=== PATIENT | female | born 1980 | race American Indian/Alaskan Native ===

== ENCOUNTER 2018-11-02 13:29 | Inpatient (IN) | payer OTHER ==
[2018-11-02 14:48] LABS: Hematocrit 32.2 % (30.3-42.9); Hemoglobin 10.1 gm/dl (10.1-14.3); Mean Corpuscular HGB Conc 31 % (30-34); Platelet Count 257 K/mm3 (140-440); Red Blood Count 4.67 M/mm3 (3.65-5.03)
[2018-11-02 14:49] LABS: Mean Corpuscular Volume 69 fl (79-97); Red Cell Distribution Width 23.1 % (13.2-15.2)
[2018-11-02 14:53] LABS: Bilirubin,Urine NEG (Negative); Blood,Urine NEG (Negative); Color,Urine Yellow (Yellow); Mucus,Urine 1+ /HPF; Protein,Urine <15 mg/dL mg/dL (Negative); Urobilinogen,Urine < 2.0 mg/dL (<2.0)
[2018-11-02] MEDS ORDERED: TYLENOL PO ONE (14:53)
[2018-11-02 15:11] LABS: Alanine Aminotransferase 6 units/L (7-56)
[2018-11-02 15:46] LABS: Uric Acid 4.5 mg/dL (3.5-7.6)
[2018-11-02] MEDS ORDERED: LACTATED RINGERS 1,000 ML ONE ×2 (16:13→17:21)
[2018-11-02] MEDS ORDERED: REGLAN IV ONE (16:28)
[2018-11-02] MEDS ORDERED: PEPCID IV ONE (16:28)
[2018-11-02] MEDS ORDERED: BICITRA PO ONE (16:28)
--- NOTE | 2018-11-02 16:36 | History and Physical Report ---
History of Present Illness Date of examination: 11/02/18 Chief complaint: 11/02/18 History of present illness: This is a 38 yo at 40 weeks sent over from clinic with elevated BP 140/80s. patient was sent for PIH w/u and US and BPP shows 04/16. She is a patient of [facility]. During her course of care she is AMA seen by MFM. HX of PPH, hx of pyelectasis, GBS+, Anxiety. Past History Past Medical History: no pertinent history, hematologic disorders, other (anemia hgb 7 on OB intake currently 10) Past Surgical History: no surgical history Family/Genetic History: none Social history: . denies: smoking, alcohol abuse, prescription drug abuse - Obstetrical History Expected Date of Delivery: 11/01/18 Actual Gestation: 40 Week(s) 1 Day(s) : 6 Para: 4 Hx # Term Pregnancies: 4 Number of Pregnancies: 1 Spontaneous Abortions: 0 Induced : 0 Number of Living Children: 4 Medications and Allergies Allergies Allergy/AdvReac Type Severity Reaction Status Date / Time No Known Allergies Allergy Verified 11/02/18 14:02 Review of Systems All systems: negative - Vital Signs Vital signs: Vital Signs Pulse BP 113 H 129/71 11/02/18 14:00 11/02/18 14:00 Temp Pulse Resp BP Pulse Ox 98 F 100 H 20 98/55 98 11/02/18 14:06 11/02/18 14:46 11/02/18 14:06 11/02/18 14:46 11/02/18 14:11 - Physical Exam Breasts: Positive: normal Cardiovascular: Regular rate, Normal S1 Lungs: Positive: Clear to auscultation, Normal air movement Abdomen: Positive: normal appearance, soft, normal bowel sounds. Negative: distention, tenderness, guarding Genitourinary (Female): Positive: normal external genitalia, normal perenium Uterus: Positive: normal size, normal contour Anus/Rectum: Positive: normal perianal skin Extremities: Positive: normal Deep Tendon Reflex Grade: Normal +2 - Obstetrical FHR: category 1 Cervical Dilatation: 1 Results Result Diagrams: 11/02/18 14:00 11/02/18 14:00 Abnormal lab results 11/02/18 11/02/18 Range/Units 14:00 14:00 MCV 69 L (79-97) fl MCH 22 L (28-32) pg RDW 23.1 H (13.2-15.2) % Creatinine 0.5 L (0.7-1.2) mg/dL ALT 6 L (7-56) units/L Lactate Dehydrogenase 231 H (91-180) units/L All other labs normal. Ultrasound: report reviewed Assessment and Plan A/P HD#1 IUP 40 weeks GBS + BPP 04/16 Discussed recommendation for NR BPP Discussed c/sec- we discussed bleeding, infection, damage to pelvic and non pelvic organs, risk of blood clots, risk of pain, risk to damage to baby, risk of hysterectomy, risk of Patient agrees with assesment and will proceed with primary csec
--- NOTE | 2018-11-02 16:37 | Anesthesia Consultation ---
Anesthesia Consult and Med Hx Date of service: 11/02/18 - Airway Anesthetic Teeth Evaluation: Good ROM Head & Neck: Adequate Mental/Hyoid Distance: Adequate Mallampati Class: Class II Intubation Access Assessment: Probably Good - Pulmonary Exam CTA: Yes - Cardiac Exam Cardiac Exam: RRR - Pre-Operative Health Status ASA Pre-Surgery Classification: ASA2, Emergency Proposed Anesthetic Plan: General, Spinal - Pulmonary Hx Asthma: No - Cardiovascular System Hx Hypertension: No - Central Nervous System Hx Seizures: No Hx Psychiatric Problems: No - Endocrine Hx Renal Disease: No Hx Hypothyroidism: No Hx Hyperthyroidism: No - Hematic Hx Anemia: Yes Hx Sickle Cell Disease: No - Other Systems Hx Alcohol Use: No - Additional Comments Anesthesia Medical History Comments: Hx Post- hemorrhage
--- NOTE | 2018-11-02 16:37 | Anesthesia Day of Surgery ---
Anesthesia Day of Surgery - Day of Surgery Patient Examined: Yes Patient H&P Reviewed: Yes Patient is NPO: No
[2018-11-02] MEDS ORDERED: ZOFRAN ONE (16:42)
[2018-11-02] MEDS ORDERED: DEXMEDETOMIDINE IV ONE (16:42)
[2018-11-02] MEDS ORDERED: ANCEF/STERILE WATER 2 GM/20 ML 2 GM/20 ML SYRINGE IV NR (17:00)
[2018-11-02] MEDS ORDERED: LACTATED RINGERS 1,000 ML IV SCH (17:00)
[2018-11-02] MEDS ORDERED: PITOCin/NS 20 UNIT/1000ML DRIP 20 UNITS/1,000 ML BAG IV SCH (17:00)
[2018-11-02] MEDS ORDERED: WATER FOR IRRIG STERILE IR ONE (17:20)
[2018-11-02] MEDS ORDERED: NACL 0.9% IR ONE (17:20)
--- NOTE | 2018-11-02 17:44 | Ultrasound Report ---
ULTRASOUND BIOPHYSICAL PROFILE INDICATION / CLINICAL INFORMATION: Hypertension. Pelvic pain. well-being. COMPARISON: None available. FINDINGS: BREATHING MOVEMENT = 0 GROSS BODY MOVEMENT = 0 TONE = 0 QUALITATIVE AMNIOTIC FLUID VOLUME = 2 TOTAL BIOPHYSICAL SCORE = 2/8 AMNIOTIC FLUID INDEX (cm) = 11.1 PRESENTATION: Cephalic. HEART RATE (beats per minute): 143 IMPRESSION: 1. biophysical profile = 2/8 age of 40 weeks and 1 day. Signer Name: Liban Gan MD Signed: 11/02/2018 5:40 PM Workstation Name: [id number]
--- NOTE | 2018-11-02 18:44 | Procedure Note ---
OB Delivery Note - Delivery Date of Delivery: 11/02/18 Surgeon: LYNNETTE FROST Estimated blood loss: 1000cc - Section Preop diagnosis: nonreassuring FHR tracing, other (BPP 2/8) Postop diagnosis: same section procedure: section, primary low transverse, bilateral tubal ligation Disposition: PACU Complications: none Narrative: see op note - Infant A at 1 minute: 8 at 5 minutes: 8 Infant Gender: Female (7 pounds 12 oz)
--- NOTE | 2018-11-02 18:53 | Operative Report ---
Operative Report Operative Report: PREOPERATIVE DIAGNOSES: 1. Intrauterine at term 40 weeks . 2. BPP 2/10 ( + MARY) 3. Elevated BP 4. Desires infertility POSTOPERATIVE DIAGNOSES: 1-4 IRMA 5. Thick meconium PROCEDURE PERFORMED: Primary low-transverse section. ANESTHESIA: Epidural. ESTIMATED BLOOD LOSS: 1000 mL. COMPLICATIONS: None. FINDINGS: Female infant in cephalic presentation, OA position, weight 7 pounds 12 ounces. Apgars were 8 at 1 minute and 8 at 5 minutes. Normal uterus, tubes, and ovaries were noted. INDICATIONS: The patient is a 38-year-old 6, para 4 female, who p resented to labor and delivery for BP check. BP normal. BPP performed and noted 04/16 so at that time it was decided to perform primary csearean The procedure was described to the patient in detail including possible risks of bleeding, infection, injury to surrounding organs, and possible need for further surgery. Informed consent was obtained prior to proceeding with the procedure. PROCEDURE NOTE: The patient was taken to the operating room where epidural anesthesia was found to be adequate. The patient was prepped and draped in the usual sterile fashion in the dorsal supine position with a left-dorman tilt. A Pfannenstiel skin incision was made with the scalpel and carried through to the underlying layer of fascia using the Bovie. The fascia was incised in the midline and extended laterally using Chong scissors. Ciara clamps were used to elevate the superior aspect of the fascial incision, which was elevated, and the underlying rectus muscles were dissected off bluntly and using Chong scissors. Attention was then turned to the inferior aspect of the fascial incision, which in similar fashion was grasped with Ciara clamps, elevated, and the underlying rectus muscles were dissected off bluntly and using Chong scissors. The rectus muscles were dissected in the midline. The peritoneum was bluntly dissected, entered, and extended superiorly and inferiorly with good visualization of the bladder. The bladder blade was inserted. The vesicouterine peritoneum was identified with pickups and entered sharply using Metzenbaum scissors. This incision was extended laterally and the bladder flap was created digitally. The bladder blade was reinserted. The lower uterine segment was incised in a transverse fashion using the scalpel and extended using manual traction. Clear fluid was noted. The was subsequently delivered atraumatically. The nose and mouth were bulb suctioned. The cord was clamped and cut. The was subsequently handed to the awaiting nursery nurse. The placenta was removed spontaneously intact with a 3-vessel cord noted. The uterus was exteriorized and cleared of all clots and debris. The uterine incision was repaired in 2 layers using 0 chromic suture. Hemostasis was visualized. Attention was turned to the right fallopian tube, which was carried to the fimbriated end. A window was created in mesosalpinx and 0 plain gut was used to create the [place] tubal ligation. In similar fashion, the left fallopian tube was identified, carried to the fimbriated end. A window was created in the mesosalpinx. The 3-0 plain gut was used to create a [place] tubal ligation. Hemostasis was assured.e uterus was returned to the abdomen. The pelvis was copiously irrigated. The uterine incision was reexamined and was noted to be hemostatic. The rectus muscles were reapproximated in the midline using 3-0 Vicryl. The fascia was closed with 0 Vicryl, the subcutaneous layer was closed with 3-0 plain gut, and the skin was closed with tevin needle. Sponge, lap, and instrument counts were correct x2. The patient was stable at the completion of the procedure and was subsequently transferred to the recovery room in stable condition.
[2018-11-02] MEDS ORDERED: MACROBID PO ONE (18:54)
[2018-11-02 19:41] LABS: Basophils % (Auto) 0.2 % (0.0-1.8); Eosinophils % (Auto) 0.6 % (0.0-4.3); Hematocrit 25.6 % (30.3-42.9); Hemoglobin 8.2 gm/dl (10.1-14.3); Lymphocytes # (Auto) 1.9 K/mm3 (1.2-5.4); Lymphocytes % (Auto) 25.5 % (13.4-35.0); Mean Corpuscular HGB Conc 32 % (30-34); Monocytes # (Auto) 0.7 K/mm3 (0.0-0.8); Monocytes % (Auto) 8.9 % (0.0-7.3); Platelet Count 205 K/mm3 (140-440); Red Blood Count 3.78 M/mm3 (3.65-5.03)
[2018-11-02 19:55] LABS: Mean Corpuscular Volume 68 fl (79-97); Red Cell Distribution Width 23.1 % (13.2-15.2)
[2018-11-02] MEDS ORDERED: LACTATED RINGERS 1,000 ML IV ONE (20:00)
[2018-11-02] MEDS ORDERED: HESPAN 500 ML IV ONE ×2 (20:19→20:25)
--- NOTE | 2018-11-02 20:57 | Post Anesthesia Evaluation ---
- Post Anesthesia Evaluation Patient Participated: Yes Airway Patent: Yes Stable Respiratory Function: Yes Nausea/Vomiting: No Temp > 96.8F: Yes Pain Manageable: Yes Adequeate Hydration: Yes Anesthesia Complications: No Block Receding Appropriately: Yes
[2018-11-02] MEDS ORDERED: IBUPROFEN PO PRN (21:58)
[2018-11-02] MEDS ORDERED: D5LR 1,000 ML IV SCH (22:00)
[2018-11-02] MEDS: MORPHINE IV PRN (23:15)
[2018-11-03] MEDS: MORPHINE IV PRN (01:54)
[2018-11-03] MEDS: ZOFRAN IV PRN ×2 (01:54→08:37)
[2018-11-03] MEDS: PERCOCET 5/325 PO PRN ×3 (04:47→21:33)
[2018-11-03 05:42] LABS: Hemoglobin 7.7 gm/dl (10.1-14.3)
[2018-11-03] MEDS: FEOSOL PO SCH ×3 (07:49→21:33)
--- NOTE | 2018-11-03 09:11 | Progress Note ---
Assessment and Plan A/P POD1 s/p csec for nr BPP had some ivf, hespan for hypotension following delivery BP normal routine potop care anemia- on iron-asymptomatic Subjective - Subjective Date of service: 11/03/18 Principal diagnosis: s/p csec tubal for BPP 04/16 Interval history: This is a 38 yo at 40 weeks sent over from clinic with elevated BP 140/80s. patient was sent for PIH w/u and US and BPP shows 04/16. She is a patient of [facility]. During her course of care she is AMA seen by [facility]. HX of PPH, hx of pyelectasis, GBS+, Anxiety. Patient reports: appetite normal, voiding normally, pain well controlled, flatus : doing well Objective - Vital Signs Latest vital signs: Vital Signs Temp Pulse Resp BP BP Pulse Ox 11/03/18 04:00 98.7 F 70 18 108/64 11/03/18 00:00 98.8 F 74 18 119/64 11/02/18 21:30 124/76 11/02/18 21:00 80 16 111/66 100 11/02/18 20:45 72 16 105/50 99 11/02/18 20:40 74 16 107/60 100 11/02/18 20:30 73 15 114/65 99 11/02/18 20:20 98.1 F 70 15 97/55 99 11/02/18 20:05 68 16 93/42 100 11/02/18 20:00 72 16 84/43 99 11/02/18 19:55 68 15 80/46 100 11/02/18 19:47 15 11/02/18 19:45 67 15 92/39 97 11/02/18 19:30 70 15 103/49 100 11/02/18 19:15 75 15 92/56 100 11/02/18 19:00 69 15 78/51 100 11/02/18 18:45 68 18 75/52 100 11/02/18 18:40 70 18 75/52 100 11/02/18 18:38 98.3 F 75 16 84/50 100 11/02/18 14:46 100 H 98/55 11/02/18 14:30 103 H 118/70 11/02/18 14:16 101 H 124/67 11/02/18 14:11 107 H 98 08/27/19 14:06 98 F 103 H 20 118/80 98 11/02/18 14:00 113 H 129/71 Intake and Output 11/02/18 11/03/18 11/03/18 23:59 07:59 15:59 Intake Total 4500 300 Output Total 700 1300 Balance 3800 -1000 Intake: IV 4500 Hespan 500 ml @ 999 mls/ 500 hr IV ONCE ONE Rx#: [id number] Lactated Ringers 1,000 ml 1000 @ 999 mls/hr IV BOLUS ONE Rx#:[id number] Intake, Free Water 300 Output: Urine 700 1300 Indwelling Catheter 1300 Uretheral ([place]) 200 Other: Total, Output Amount 300 Estimated Blood Loss 1,000 - Exam Breasts: Present: normal Cardiovascular: Present: Regular rate, Normal S1 Lungs: Present: Clear to auscultation, Normal air movement Abdomen: Present: normal appearance, soft, normal bowel sounds. Absent: distention, tenderness, guarding Uterus: Present: normal, firm, fundal height below umbilicus. Absent: bogginess, tenderness Extremities: Present: normal Deep Tendon Reflex Grade: Normal +2 Incision: Present: normal, dry, dressed - Labs Labs: Abnormal lab results 11/02/18 11/02/18 11/02/18 Range/Units 14:00 14:00 19:00 Hgb 8.2 L (10.1-14.3) gm/dl Hct 25.6 L D (30.3-42.9) % MCV 69 L 68 L (79-97) fl MCH 22 L 22 L (28-32) pg RDW 23.1 H 23.1 H (13.2-15.2) % [place] % (Auto) 8.9 H (0.0-7.3) % Creatinine 0.5 L (0.7-1.2) mg/dL ALT 6 L (7-56) units/L Lactate Dehydrogenase 231 H (91-180) units/L 11/03/18 Range/Units 05:14 Hgb 7.7 L (10.1-14.3) gm/dl Hct 24.0 L (30.3-42.9) % MCV (79-97) fl MCH (28-32) pg RDW (13.2-15.2) % [place] % (Auto) (0.0-7.3) % Creatinine (0.7-1.2) mg/dL ALT (7-56) units/L Lactate Dehydrogenase (91-180) units/L
[2018-11-03] MEDS ORDERED: TORADOL ONE (10:23)
[2018-11-03] MEDS ORDERED: TORADOL IV NR (10:30)
[2018-11-04] MEDS: PERCOCET 5/325 PO PRN ×2 (05:37→20:45)
--- NOTE | 2018-11-04 08:08 | Progress Note ---
Assessment and Plan POD2 s/p primary c/s with tubal ligation Acute on chronic anemia- iron supplementation Continue abdominal binder Walk and hydrate Reviewed breast feeding education Anticipate d/c to home tomorrow Subjective - Subjective Date of service: 11/04/18 Principal diagnosis: s/p csec tubal for BPP 04/16 Interval history: Pt is POD2 s/p primary with bilateral tubal ligation. Patient reports: appetite normal, voiding normally, pain well controlled (experiencing abdominal and incisional pain, wnl), ambulating normally, no flatus, no bowel movement : doing well, bottle feeding (Pt desires to breast feed, infant does not maintain latch) Objective - Vital Signs Latest vital signs: Vital Signs Temp Pulse Resp BP Pulse Ox 11/04/18 05:37 18 11/03/18 23:13 97.7 F 101 H 20 120/73 97 11/03/18 21:33 18 11/03/18 16:26 98.2 F 91 H 20 112/70 98 Intake and Output 11/03/18 11/04/18 11/04/18 23:59 07:59 15:59 Intake Total 1300 120 Output Total 900 Balance 400 120 Intake: Oral 800 120 Intake, Free Water 500 Output: Urine 900 Void 900 Other: Total, Intake Amount 320 120 Total, Output Amount 900 # Voids Void 3 1 - Exam Cardiovascular: Present: Regular rate, Normal S1, Normal S2, No murmurs Lungs: Present: Clear to auscultation, Normal air movement Abdomen: Present: normal appearance, soft, normal bowel sounds Uterus: Present: normal, firm, fundal height below umbilicus Extremities: Present: normal Incision: Present: dressed
--- NOTE | 2018-11-04 08:17 | Discharge Summary ---
Providers - Providers Date of Admission: 11/02/18 16:57 Date of discharge: 11/05/18 Attending physician: LYNNETTE FROST MD Primary care physician: LYNNETTE FROST MD Hospitalization Reason for admission: observation Delivery: Procedure: primary low transverse Procedure details: Emergency for BPP 04/16 Episiotomy: none Laceration: none Incision: normal, dry, intact Other procedures: tubal ligation complications: none Discharge diagnosis: IUP at term delivered Hospital course: Pt presented from OB office for monitoring of elevated BP. BP was wnl, BPP 04/16. Urgent primary LTCS was performed. Hgb 10.1 -> 7.7. The remainder of her hospital course was uneventful. Pt is having difficulty maintaining a latch while breast feeding. Condition at discharge: Good Disposition: DC-01 TO HOME OR SELFCARE Plan - Discharge Medications Prescriptions: Ferrous Sulfate [Feosol 325 MG tab] 325 mg PO BID #30 tablet Ibuprofen [Motrin] 600 mg PO Q8H PRN #30 tablet PRN Reason: Pain oxyCODONE /ACETAMINOPHEN [Percocet 5/325] 1 tab PO Q6HR PRN #30 tablet PRN Reason: Pain - Provider Discharge Summary Activity: routine, no sex for 6 weeks, no heavy lifting 4 weeks, no strenuous exercise Diet: routine Instructions: routine Additional instructions: [] Smoking cessation referral if applicable(refer to patient education folder for contact #) [] Refer to [facility] Booklet Call your doctor immediately for: * Fever > 100.5 * Heavy vaginal bleeding ( >1 pad per hour) * Severe persistent headache * Shortness of breath * Reddened, hot, painful area to leg or breast * Drainage or odor from incision. * Keep incision clean and dry at all times and follow doctor's instructions regarding bathing/showering - Follow up plan Follow up: LYNNETTE FROST MD [Primary Care Provider] - 14 Days
[2018-11-04] MEDS: FEOSOL PO SCH ×3 (09:45→20:45)
[2018-11-05] MEDS: PERCOCET 5/325 PO PRN (04:36)
[2018-11-05] MEDS: FEOSOL PO SCH (08:49)
[2018-11-05 14:30] VITALS: BP 123/83
== END 2018-11-05 13:30 | disposition home or self-care (01) | DRG 784 ==
LOC: TRG 13:29 → LD 16:57 → APU 20:38 → OB 21:37
PROVIDERS: ADMIT Obstetrics & Gynecology; ATTEND Obstetrics & Gynecology
PROC: 10D00Z1 Extraction of Products of Conception, Low, Open Approach (ICD-10-PCS; principal; 2018-11-02)
PROC: 0UB70ZZ Excision of Bilateral Fallopian Tubes, Open Approach (ICD-10-PCS; 2018-11-02)
DX: O76 Abnormality in fetal heart rate and rhythm complicating labor and delivery (principal); D62 Acute posthemorrhagic anemia; O99.02 Anemia complicating childbirth; O26.53 Maternal hypotension syndrome, third trimester; O99.344 Other mental disorders complicating childbirth; F41.9 Anxiety disorder, unspecified; O77.0 Labor and delivery complicated by meconium in amniotic fluid; O99.824 Streptococcus B carrier state complicating childbirth; Z3A.40 40 weeks gestation of pregnancy; Z37.0 Single live birth
CPT/HCPCS: 36415; 76815; 76819; 81001; 82565; 83615; 84450; 84460; 84550; 85014; 85018; 85025; 85027; 86850; 86900; 86901; 88302; 88305; 88307; G0378; J0690; J1885; J2270; J2405; J2590; J2765; J3490; J7120; J7121